=== PATIENT | female | born 1970 | race Caucasian/White ===

== ENCOUNTER → 2016-06-13 | Outpatient (CLI) | payer OTHER ==
[~2016-06-13] MED LIST: BIOT1CAP8 PO; CALC500C3 PO; CALCIUM PO; CALCPOW18; CITA20TA9 PO; CMD10 PO; ENOX60IN SQ; LEVO1TAB35 PO; LVNIS120 SQ; METF-384 PO; OXYC-57 PO; OYST500T47; PEDICHW50 PO; PRLSR20 PO; VIT K PO; WARF10TA4 PO
== END | disposition home or self-care (01) ==
LOC: C.PAPS 08:10
PROVIDERS: ATTEND Obstetrics & Gynecology
DX: Z12.4 Encounter for screening for malignant neoplasm of cervix (principal)

== ENCOUNTER 2016-09-01 05:25 | Day surgery (SDC) | payer OTHER ==
[2016-08-11 10:00] VITALS: BMI 26.0
--- NOTE | 2016-08-11 10:28 | PAT Medication Instructions ---
Service Date Aug 11, 2016. Current Home Medication List Biotin (Biotin), 2 MG PO QPM Calcium Carbonate (Tums), 500 MG PO QPM Citalopram Hydrobromide (Celexa), 20 MG PO QPM Omeprazole (Prilosec), 20 MG PO QPM Pediatric Multiple Vitamin W/ (Flintstones Chewable), 2 TAB PO HS Warfarin Sod (Jantoven), 10 MG PO QPM Medication Instructions For Your Scheduled Surgery - Hold the following medications 2 weeks prior to surgery: Biotin (Biotin), 2 MG PO QPM - Instructions per Dr. Bourne: Warfarin Sod (Jantoven), 10 MG PO QPM Lovenox bridge - Take the following medications as scheduled the night before surgery: Calcium Carbonate (Tums), 500 MG PO QPM Citalopram Hydrobromide (Celexa), 20 MG PO QPM Omeprazole (Prilosec), 20 MG PO QPM Pediatric Multiple Vitamin W/ (Flintstones Chewable), 2 TAB PO HS If you have any questions please call us at [phone] or [phone] or [phone]
[2016-08-11 11:08] LABS: BASO % 0.3 %; BASO ABS # 0.03 K/uL (0-0.2); COMPLETE YES; EOS % 2.3 %; HEMATOCRIT 43.1 % (37-47); IG% 0.1 %; LYMPH % 23.7 %; LYMPH ABS # 2.13 K/uL (1.2-3.4); MEAN CELL VOLUME 86.9 fL (80-100); MEAN CORPUSCULAR HEMOGLOBIN 28.6 pg (25-34); MEAN CORPUSCULAR HGB CONC 32.9 g/dl (32-36); MEAN PLATELET VOLUME 9.4 fL (7.4-10.4); MONO % 6.2 %; NEUT % 67.4 %; PLATELET COUNT 360 K/uL (130-400); RED BLOOD COUNT 4.96 M/uL (4.2-5.4); WHITE BLOOD COUNT 8.98 K/uL (4.8-10.8)
[2016-08-11 11:23] LABS: INR 1.8 (0.9-1.1); PARTIAL THROMBOPLASTIN RATIO 1.2; PROTHROMBIN TIME (PATIENT) 19.6 SECONDS (9.0-12.0)
[2016-08-11 11:25] LABS: CALCIUM 8.8 mg/dl (8.5-10.1); CREATININE 0.63 mg/dl (0.60-1.20); POTASSIUM 4.2 mmol/L (3.5-5.1)
--- NOTE | 2016-08-11 13:37 | HISTORY & PHYSICAL EXAMINATION ---
DATE OF ADMISSION: 08/11/2016 ADMITTING DIAGNOSES: 1. Desired permanent surgical sterilization. 2. Left ovarian cyst. 3. ParaGard IUD in place. 4. History of multiple pulmonary emboli. ADMISSION HISTORY: The patient is a 46-year-old 2, para 2, ParaGard IUD in place, who is admitted for diagnostic laparoscopy, possible left ovarian cystectomy or left salpingo-oophorectomy, bilateral tubal fulguration for sterilization, and ParaGard IUD removal. The patient was seen in May of this year for annual gynecological examination. At that time, she was complaining of irregular vaginal bleeding. The patient had a pelvic ultrasound, which showed an IUD in proper position with possible mild embedding in the myometrial wall. The patient had the IUD placed in February 2015 prior to gastric bypass surgery. The patient has always desired permanent surgical sterilization, but that was delayed prior to her bypass surgery. Since the bypass surgery, the patient has lost over 125 pounds. At the time of the pelvic ultrasound for evaluation of the IUD, an incidental enlargement of the left ovary was noted with 2 complex ovarian cysts, one measuring 5 cm in diameter and the other measuring 2 cm in diameter. The patient is asymptomatic from the cyst. The patient also has a history of thrombosis. She has had 3 separate pulmonary emboli of unknown etiology. The patient is currently anticoagulated on Coumadin and is managed by her primary care provider. Prior to her gastric bypass surgery, she was switched over to Lovenox by the hematology clinic in [place]. The IUD has also been causing irregular bleeding for the last several months and as such, the patient wishes to have the IUD removed along with a tubal ligation and evaluation of the left ovarian cyst. PAST MEDICAL HISTORY: OBSTETRICAL: Vaginal delivery x2. GYNECOLOGICAL: As above. MEDICAL: As above. SURGICAL: Cholecystectomy, gastric bypass surgery, and wisdom teeth extraction. ALLERGIES: No known drug allergies. SOCIAL HISTORY: No smoking. FAMILY HISTORY: Noncontributory. REVIEW OF SYSTEMS: As per HPI. PHYSICAL EXAMINATION: GENERAL: Shows a pleasant female in no acute distress. VITAL SIGNS: Blood pressure of 110/68, height of 5 feet 3 inches, and weight 152 pounds. HEENT EXAMINATION: Unremarkable. NECK: Supple. LUNGS: Clear. HEART: With a regular rhythm and rate. ABDOMEN: Soft and nontender. PELVIC: Shows normal external genitalia. The vaginal vault is pink and rugated. The cervical os is multiparous and closed. Bimanual examination shows an anterior mobile uterus. Adnexa showed no palpable masses and the complex cyst cannot be palpated. RECTAL: Confirmatory. EXTREMITIES: No deep calf tenderness. NEUROLOGIC: Grossly intact. IMPRESSION: A 46-year-old G2, P2, IUD in place, requesting permanent surgical sterilization and evaluation of left ovarian cyst. PLAN: The risks, benefits and alternatives to the surgery have been discussed. While the benefits will be bilateral tubal ligation with removal of the IUD as well as evaluation of left ovarian cyst, the risks are bleeding, infection, inadvertent injury to bowel or bladder or failure of the procedure itself. The patient has been seen by the anticoagulation clinic at [facility] and the plan is in place to evaluate or to reverse the patient's anticoagulation. The patient clotting profile will be checked on the morning of admission. The possibility of postponing the surgery has also been discussed with the patient. As far as the left ovarian cyst is concerned, we will evaluate this. Possible ovarian cystectomy or removal of the left adnexa will also occur at the time of the surgery. All questions answered of the patient. Permit has been signed and she wishes to proceed.
[~2016-09-01] VITALS: Ht 162.6 cm; Wt 69.5 kg
[~2016-09-01 05:25] MED LIST changes: -CALCIUM PO; -CALCPOW18; -CMD10 PO; -ENOX60IN SQ; -LEVO1TAB35 PO; -LVNIS120 SQ; -METF-384 PO; -OXYC-57 PO; -OYST500T47; -VIT K PO
[2016-09-01] MEDS ORDERED: LACTATED RINGER'S 1000ML 1,000 ML IV SCH (06:00)
[2016-09-01] MEDS ORDERED: LACTATED RINGER'S 1000ML IV SCH (06:00)
[2016-09-01] MEDS ORDERED: ENOX60IN SQ (06:21)
[2016-09-01 06:22] VITALS: BP 99/56; PULSE 63; TEMP 36.6; O2SAT 97; Ht 162.6 cm; Wt 69.5 kg
[2016-09-01 06:32] LABS: PROTHROMBIN TIME (PATIENT) 11.2 SECONDS (9.0-12.0)
[2016-09-01] MEDS ORDERED: METHYLENE BLUE 0.5% 10 ML VIAL ONE (06:54)
[2016-09-01] MEDS ORDERED: PROPOFOL IV EMULSION 10 MG/ML 20 ML VIAL IV ONE (06:55)
[2016-09-01] MEDS ORDERED: GLYCOPYRROLATE INJ 0.2 MG/ML VIAL ONE ×2 (06:55→14:57)
[2016-09-01] MEDS ORDERED: NEOSTIGMINE METHYLSULFATE 5 MG/5 ML SYR ONE (06:55)
[2016-09-01] MEDS ORDERED: LIDOCAINE HCL 2% 2 ML VIAL (20MG/ML) ONE (06:55)
[2016-09-01] MEDS ORDERED: DEXAMETHASONE SOD INJ 4 MG/ML VIAL ONE (06:55)
[2016-09-01] MEDS ORDERED: ONDANSETRON INJ 2 MG/ML 2 ML VIAL ONE (06:55)
[2016-09-01] MEDS ORDERED: ROCURONIUM BROMIDE 10 MG/ML 5 ML VIAL ONE ×2 (06:55→06:59)
[2016-09-01] MEDS ORDERED: BUPIVACAINE 0.5 % 5 MG/1 ML MPF 30ML VIAL ONE (06:55)
[2016-09-01] MEDS ORDERED: MIDAZOLAM HCL 1 MG/ML 2ML VIAL ONE (06:56)
[2016-09-01] MEDS ORDERED: FENTANYL CITRATE INJ 50 MCG/1 ML 2 ML VIAL ONE ×2 (06:56→09:09)
--- NOTE | 2016-09-01 06:59 | History & Physical Bridge Note ---
H&P Re-Evaluation Bridge Note: I have examined the patient, reviewed the History & Physical and in the interval since the performance of the History & Physical I have noted the following changes of clinical significance: PT/PTT, INR checked this AM, WNL. Plan in place for starting coagulation after surgery.
[2016-09-01] MEDS ORDERED: FENTANYL CITRATE INJ 50 MCG/1 ML 2 ML VIAL IV PRN (08:00)
[2016-09-01] MEDS ORDERED: MEPERIDINE HCL 25 MG/ML CARP IV PRN (08:00)
[2016-09-01] MEDS ORDERED: ATROPINE SULFATE 0.1 MG/ML 5ML SYR IV PRN (08:00)
[2016-09-01] MEDS ORDERED: EpHEDrine SULFATE INJ 50 MG/ML AMP IV PRN (08:00)
[2016-09-01] MEDS ORDERED: MoRPHine SULFATE 10 MG/ML CARP/VIAL IV PRN (08:00)
[2016-09-01] MEDS ORDERED: ONDANSETRON INJ 2 MG/ML 2 ML VIAL IV PRN ×2 (08:00→08:45)
[2016-09-01] MEDS ORDERED: SODIUM CHLORIDE 0.9% 1000ML 1,000 ML IV SCH (08:34)
--- NOTE | 2016-09-01 08:42 | [facility] Post Operative Brief Note ---
Immediate Operative Summary Operative Date Sep 01, 2016. Pre-Operative Diagnosis 1) Desired permanent surgical sterilization, 2) Left Complex Ovarian Cyst, 3) Removal of Intrauterine Device Post-Operative Diagnosis Same Procedure(s) Performed 1) Intrauterine Device Removal; 2) Diagnostic Laparoscopy; 3) Left Salpingo-Oophorectomy; 4) Fulgeration of Right Fallopian Tube Surgeon Dr. Santana Social Science Professor Surgeon(s) None Estimated Blood Loss 25 ml Findings Paraguard IUD removed; complex left ovarian cyst, LSO performed, fulguration of right fallopian tube, specimen removed Fluids (cc crystalloids) 1000 Specimens A. Explanted Intrauterine Device B. Left Tube and Ovary Drains None Anesthesia General Complication(s) None Disposition Recovery Room / PACU
[2016-09-01] MEDS ORDERED: OXYC-57 PO (08:43)
[2016-09-01] MEDS ORDERED: OXYCODONE/ACETAMINOPHEN 5-325 TAB PO PRN ×2 (08:45)
--- NOTE | 2016-09-01 08:46 | Discharge Instructions-SurgCtr ---
Discharge Instructions Date of Service Sep 01, 2016. Visit Reason for Visit: Desires Sterilization Discharge Discharge Diagnosis / Problem: same Discharge Goals Goal(s): Therapeutic intervention Medications Restart Stopped Medication(s): Restart anticoagulation plan given to you by the clinic. Delay starting the plan for 24 hours. Activity Recommendations Activity Limitations: as noted below Anesthesia . Post Anesthesia Instructions: If you have had General Anesthesia or IV Sedation: * Do not drive today. * Resume driving when surgeon permits. * Do not make important decisions or sign legal documents today. * Call surgeon for: 1. Temperature elevations greater than 101 degrees F. 2. Uncontrollable pain. 3. Excessive bleeding. 4. Persistent nausea and vomiting. 5. Medication intolerance (nausea, vomiting or rash). * For nausea and vomiting use only clear liquids such as: tea, soda, bouillon until nausea subsides, then gradually increase diet as tolerated. * If you have any concerns or questions, call your surgeon's office. If physician is unavailable and it is an emergency, call 911 or go to the nearest emergency room. . Instructions / Follow-Up Instructions / Follow-Up ACTIVITY RECOMMENDATIONS: * Rest the first 2-3 days. You should be back to your normal activity levels by day 3. * No heavy lifting for 2 weeks. * No intercourse, tampons or douching for 1-2 weeks. * You may shower the next day. * Do not drive anytime that you are taking narcotic pain medicines. RETURN TO SCHOOL/WORK: * May return to school or work after 2-3 days. DIET: Nausea may occur in the immediate post-operative period. If so, take clear liquids such as tea, bouillon, apple juice until all nausea has subsided, then resume usual diet. MEDICATIONS: Resume previous medications unless instructed otherwise by your surgeon. Ibuprofen 200mg 2-3 tablets every 4-6 hours as needed -- OR -- Aleve 2 tablets every 8-12 hours as needed for post-operative discomfort Medications are over the counter. Tylenol may be used if above medications are contraindicated or not preferred. Medication should be taken with food or milk. Do not take on an empty stomach. SPECIAL CARE INSTRUCTIONS: * Check temperature twice daily for one week. report any elevation over 101 degrees. * You may experience some vagina spotting and/or bleeding. This is normal for 1 -2 weeks and should not be heavier than a normal period. If it is unusual in amount, call your physician. * Post-operative discomfort may consist of a sore throat, a "bloated" feeling and pain in the shoulders. these are normal symptoms, which usually only last for 2-3 days. * Remove band-aids tomorrow and shower. There is no need to replace band-aids unless there is drainage or discomfort. FOLLOW UP VISIT: Call your doctor's office for a post-operative 2 week visit if not already scheduled. Diet Recommendations Home Diet: resume previous diet Procedures Procedures Performed: 1) Intrauterine Device Removal; 2) Diagnostic Laparoscopy; 3) Left Salpingo-Oophorectomy; 4) Fulgeration of Right Fallopian Tube Pending Studies Studies pending at discharge: yes List of pending studies: Pathology from surgery Medical Emergencies . Who to Call and When: Medical Emergencies: If at any time you feel your situation is an emergency, please call 911 immediately. . Non-Emergent Contact Non-Emergency issues call your: Shactor Helper Call Non-Emergent contact if: you have a fever, temperature is above 100.5, your pain is not controlled, you have any medication questions . . "Provider Documentation" section prepared by Moreno Santana. [place] Drug Monitoring Program Search Results: patient reviewed within database, no issues identified
--- NOTE | 2016-09-01 08:59 | OPERATIVE REPORT ---
DATE OF OPERATION: 09/01/2016 PREOPERATIVE DIAGNOSES: 1. IUD in place. 2. Desired permanent surgical sterilization. 3. Left ovarian cyst. PROCEDURES PERFORMED: 1. Removal of ParaGard IUD. 2. Diagnostic laparoscopy. 3. Laparoscopic left salpingo-oophorectomy. 4. Fulguration of right fallopian tube. SURGEON: Dr. Moreno Santana. ANESTHESIA: General. FINDINGS: Exam of the cervix showed an IUD string, which was grasped and pulled, removing the IUD in total. Diagnostic laparoscopy performed, which showed a complex left ovarian cyst. Normal appearing right ovary. Left salpingo-oophorectomy and fulguration of right fallopian tube performed. PROCEDURE IN DETAIL: The patient was taken to the operating room and after general anesthesia, was placed in dorsolithotomy position and draped and prepped in the usual fashion. Pedersen catheter was inserted into the bladder, which remained there throughout the procedure. A weighted speculum was placed in the vagina. The anterior lip of the cervix grasped with a single tooth tenaculum. The IUD string identified, grasped and pulled removing the IUD in total, which was then discarded. Uterine manipulator inserted into the cervical os and insufflated with 3 mL of air. A small subumbilical incision was made and Veress needle was introduced into the pelvic cavity, which was then insufflated with 3 liters of CO2. Veress needle was removed and an 11-mm trocar was inserted through the umbilical incision. Pelvic organs were visualized and then under direct laparoscopic guidance, a 5-mm suprapubic trocar and a left 5-mm paramedial trocar were placed. Pelvic organs were visualized with the description as above. The left adnexa was elevated and grasped with a locking grasping forceps. The left ureter was identified using the Harmonic scalpel. A left salpingo-oophorectomy was performed and the left tube and ovary were placed into the cul-de-sac. Inspection of the broad ligament, where the excision had occurred, showed hemostasis. Bipolar cautery instrument was inserted and the right fallopian tube was grasped in the middle third and in 3 contiguous [place], was fulgurated until resistance met 0. A 5-mm scope was placed through the paramedial port and an EndoCatch bag was placed through the umbilical incision. The specimen was placed through the bag and the bag was brought up through the umbilical incision. The bag was opened and the specimen was removed. Pneumoperitoneum was reestablished. All pedicles were inspected for hemostasis. Irrigation of the pedicles were performed again hemostasis was present. Fluid was aspirated. The trocars were removed and pneumoperitoneum was evacuated. The umbilical fascial incision was closed with interrupted 0 Vicryl sutures. Skin incisions were closed with 4-0 Monocryl subcuticular stitches. Sterile dressings were applied. Pedersen catheter and uterine manipulator were removed. The patient was taken out of dorsal lithotomy to recovery room in satisfactory condition. I attest to the content of the Intraoperative Record and any orders documented therein. Any exceptio ns are noted below.
--- NOTE | 2016-09-01 09:25 | Anesthesiology Progress Note ---
Anesthesia Post Op Note Date & Time Sep 01, 2016 at 09:24 Vital Signs Pain Intensity: 2 Vital Signs Past 12 Hours Date Time Temp Pulse Resp B/P Pulse Ox O2 Delivery O2 Flow Rate FiO2 09/01/16 09:15 64 16 102/55 100 Room Air 09/01/16 09:05 62 16 106/60 100 Mask 10 09/01/16 08:55 68 16 112/61 100 Mask 10 09/01/16 08:47 36.9 87 12 122/73 100 Mask 10 09/01/16 06:22 36.6 63 16 99/56 97 Room Air Notes Mental Status: alert / awake / arousable, participated in evaluation Pt Amnestic to Procedure: Yes Nausea / Vomiting: adequately controlled Pain: adequately controlled Airway Patency, RR, SpO2: stable & adequate BP & HR: stable & adequate Hydration State: stable & adequate Anesthetic Complications: no major complications apparent
[2016-09-01 10:05] VITALS: BP 110/55; PULSE 66; TEMP 37; O2SAT 92
[2016-09-01 10:35] VITALS: BP 113/62; PULSE 73; O2SAT 92
[2016-09-01 11:08] VITALS: BP 105/55; PULSE 79; O2SAT 95
[2016-09-28] MEDS ORDERED: CALCIUM PO (13:38)
[2016-09-28] MEDS ORDERED: VIT K PO (13:38)
[2016-10-31] MEDS ORDERED: CALCPOW18 (14:24)
[2016-10-31] MEDS ORDERED: OYST500T47 (14:24)
== END 2016-09-01 11:40 | disposition home or self-care (01) ==
LOC: C.ACU 05:25
PROVIDERS: ATTEND Obstetrics & Gynecology
DX: Z30.2 Encounter for sterilization (principal); D27.1 Benign neoplasm of left ovary; Z86.711 Personal history of pulmonary embolism; Z79.01 Long term (current) use of anticoagulants; Z98.84 Bariatric surgery status

== ENCOUNTER 2017-03-26 17:09 | Emergency (ER) | payer OTHER ==
[~2017-03-26] VITALS: Ht 162.6 cm; Wt 63.1 kg
[~2017-03-26 17:09] MED LIST changes: -CALC500C3 PO; +CALCPOW18
[2017-03-26 17:13] VITALS: Ht 162.6 cm; Wt 63.1 kg
[2017-03-26] MEDS ORDERED: KETOROLAC TROMETHAMINE 15 MG/ML VIAL IV STA (17:25)
[2017-03-26] MEDS ORDERED: AMOX875T PO (17:52)
[2017-03-26] MEDS ORDERED: CYAN30003 PO (17:52)
[2017-03-26 18:24] LABS: BASO % 0.3 %; BASO ABS # 0.03 K/uL (0-0.2); COMPLETE YES; HEMATOCRIT 40.9 % (37-47); IG% 0.3 %; LYMPH % 33.9 %; LYMPH ABS # 3.13 K/uL (1.2-3.4); MEAN CELL VOLUME 83.6 fL (80-100); MEAN CORPUSCULAR HGB CONC 33.5 g/dl (32-36); MEAN PLATELET VOLUME 8.8 fL (7.4-10.4); MONO % 9.1 %; NEUT % 54.4 %; PLATELET COUNT 324 K/uL (130-400); RED BLOOD COUNT 4.89 M/uL (4.2-5.4); WHITE BLOOD COUNT 9.23 K/uL (4.8-10.8)
[2017-03-26 18:47] LABS: BUN/CREATININE RATIO 20.2 (10-20); CREATININE 0.63 mg/dl (0.60-1.20)
[2017-03-26 18:50] LABS: ALB/GLOB RATIO 0.8 (0.9-2)
--- NOTE | 2017-03-26 19:05 | DIAGNOSTIC IMAGING REPORT ---
CT OF THE ABDOMEN AND PELVIS WITHOUT CONTRAST, STONE PROTOCOL CLINICAL HISTORY: Right flank pain. Hematuria. COMPARISON STUDY: CT of the abdomen and pelvis April 05, 2012. TECHNIQUE: Helical axial images of the abdomen and pelvis were obtained without IV or oral contrast according to renal stone protocol. A dose lowering technique was utilized adhering to the principles of ALARA. FINDINGS: Unenhanced images of the liver, spleen, adrenal glands and pancreas are normal. There is no biliary ductal dilatation status post cholecystectomy. There is no pancreatic ductal dilatation. There are findings consistent with Kevon-en-Y gastric bypass. There is no evidence for a bowel obstruction. Caliber of small and large bowel are normal. The appendix is normal. No renal, ureteral or bladder calculi are present. There is no hydronephrosis or hydroureter. There is no perinephric infiltration. Mild bladder wall thickening may be due to underdistention. IMPRESSION: 1. No urinary calculi or hydronephrosis. 2. Mild bladder wall thickening. This may be due to underdistention although could be correlated with urinalysis to exclude cystitis. 3. Status post gastric bypass. No bowel obstruction. Normal appendix. Electronically signed by: Kadeem De La Cruz M.D. 03/26/2017 7:03 PM Dictated Date/Time: 03/26/2017 6:57 PM
[2017-03-26 19:24] LABS: MANUAL MICROSCOPIC REQUIRED? YES; REVIEW REQ? NO; URINE APPEARANCE SLIGHTLY CLOUDY (CLEAR); URINE COLOR RED
[2017-03-26 19:25] LABS: SULFASALICYLIC ACID POS (NEG); URINE SPECIFIC GRAVITY 1.004 (1.000-1.030)
[2017-03-26 19:36] LABS: URINE BACTERIA 1+ (NEG); URINE RBC >30 /hpf (0-4); URINE WBC >30 /hpf (0-5); ZZUR CULT IF INDIC CLEAN CATCH YES
[2017-03-26] MEDS ORDERED: PHEN-876 PO (19:54)
[2017-03-26] MEDS ORDERED: NITR-5 PO (19:54)
--- NOTE | 2017-03-26 19:55 | EMERGENCY ROOM VISIT NOTE ---
History First contact with patient: 17:17 Chief Complaint: HEMATURIA Stated Complaint: BLOODY URINE History of Present Illness The patient is a 47 year old female who presents to the Emergency Room with complaints of blood in her urine. The patient reports that she has had urinary symptoms starting approximately 4 hours ago. She reports that initially, she developed dysuria, urgency and increased frequency of urination. She states this initially felt like a UTI, which she has had in the past. She then developed a large amount of blood in the urine. She reports a mild pain in the suprapubic region. She does report she had some pain in her right flank this morning, which she attributed to normal aches and pains. She rates her overall discomfort a 7/10. She denies any history of kidney stones or kidney infections. She denies any fevers/chills, nausea or vomiting. Review of Systems A complete 10 point review of systems was reviewed with the patient with pertinent positives and negatives as per history of present illness. All else were negative. Past Medical/Surgical History Medical Problems: (1) Acute bronchitis (2) Acute pulmonary embolism (3) Acute pulmonary embolism (4) Chronic anticoagulation (5) Encounter for sterilization (6) History of - pulmonary embolus (7) LA (lupus anticoagulant) disorder (8) PE (pulmonary embolism) (9) Pneumonia Surgical Problems: (1) H/O bariatric surgery (2) Hx of cholecystectomy Social History Problems: (1) IUD (intrauterine device) in place Family History Cancer Diabetes mellitus FH: gallbladder disease Heart disease Hypertension Lung disease Social History Smoking Status: Current Every Day Smoker Alcohol Use: none Drug Use: none Marital Status: Housing Status: lives with family, lives with significant other Occupation Status: unemployed Current/Historical Medications Scheduled Amoxicillin & Pot Clavulanate (Augmentin 875-125 mg), 1 TAB PO BID Citalopram Hydrobromide (Celexa), 20 MG PO QPM Cyanocobalamin (Vitamin B12), 1,500 MCG PO QPM Nitrofurantoin Monohyd Macrocr (Macrobid), 100 MG PO BID Omeprazole (Prilosec), 20 MG PO QPM Pediatric Multiple Vitamin W/ (Flintstones Chewable), 2 TAB PO HS Phenazopyridine HCl (Pyridium), 200 MG PO TID Warfarin Sod (Jantoven), 10 MG PO QPM Miscellaneous Medications Calcium Citrate Tetrahydrate ( (Calcium Citrate), Unknown Dose Physical Exam Vital Signs Date Time Temp Pulse Resp B/P (MAP) Pulse Ox O2 Delivery O2 Flow Rate FiO2 03/26/17 20:12 36.7 68 18 97/59 97 03/26/17 18:52 69 18 97/59 99 Room Air 03/26/17 17:13 36.8 82 18 132/79 98 Room Air Physical Exam VITALS: Vitals are noted on the nurse's note and reviewed by myself. Vital signs stable. GENERAL: This is a 47-year-old female, in no acute distress, nondiaphoretic, well-developed well-nourished. HEART: Regular rate and rhythm without murmurs gallops or rubs. LUNGS: Clear to auscultation bilaterally without wheezes, rales or rhonchi. ABDOMEN: Positive bowel sounds x 4. Suprapubic tenderness. Mild right CVA tenderness. NEURO: Patient was alert and oriented to person place and time. Medical Decision & Procedures ER Provider Diagnostic Interpretation: CT OF THE ABDOMEN AND PELVIS WITHOUT CONTRAST, STONE PROTOCOL CLINICAL HISTORY: Right flank pain. Hematuria. COMPARISON STUDY: CT of the abdomen and pelvis April 05, 2012. TECHNIQUE: Helical axial images of the abdomen and pelvis were obtained without IV or oral contrast according to renal stone protocol. A dose lowering technique was utilized adhering to the principles of ALARA. FINDINGS: Unenhanced images of the liver, spleen, adrenal glands and pancreas are normal. There is no biliary ductal dilatation status post cholecystectomy. There is no pancreatic ductal dilatation. There are findings consistent with Kevon-en-Y gastric bypass. There is no evidence for a bowel obstruction. Caliber of small and large bowel are normal. The appendix is normal. No renal, ureteral or bladder calculi are present. There is no hydronephrosis or hydroureter. There is no perinephric infiltration. Mild bladder wall thickening may be due to underdistention. IMPRESSION: 1. No urinary calculi or hydronephrosis. 2. Mild bladder wall thickening. This may be due to underdistention although could be correlated with urinalysis to exclude cystitis. 3. Status post gastric bypass. No bowel obstruction. Normal appendix. Laboratory Results 03/26/17 18:00 Red Blood Count 4.89, Mean Corpuscular Volume 83.6, Mean Corpuscular Hemoglobin 28.0, Mean Corpuscular Hemoglobin Concent 33.5, Mean Platelet Volume 8.8, Neutrophils (%) (Auto) 54.4, Lymphocytes (%) (Auto) 33.9, Monocytes (%) (Auto) 9.1, Eosinophils (%) (Auto) 2.0, Basophils (%) (Auto) 0.3, Neutrophils # (Auto) 5.02, Lymphocytes # (Auto) 3.13, Monocytes # (Auto) 0.84, Eosinophils # (Auto) 0.18, Basophils # (Auto) 0.03 03/26/17 18:00 Test 03/26/17 18:00 White Blood Count 9.23 K/uL (4.8-10.8) Red Blood Count 4.89 M/uL (4.2-5.4) Hemoglobin 13.7 g/dL (12.0-16.0) Hematocrit 40.9 % (37-47) Mean Corpuscular Volume 83.6 fL (80-100) Mean Corpuscular Hemoglobin 28.0 pg (25-34) Mean Corpuscular Hemoglobin Concent 33.5 g/dl (32-36) Platelet Count 324 K/uL (130-400) Mean Platelet Volume 8.8 fL (7.4-10.4) Neutrophils (%) (Auto) 54.4 % Lymphocytes (%) (Auto) 33.9 % Monocytes (%) (Auto) 9.1 % Eosinophils (%) (Auto) 2.0 % Basophils (%) (Auto) 0.3 % Neutrophils # (Auto) 5.02 K/uL (1.4-6.5) Lymphocytes # (Auto) 3.13 K/uL (1.2-3.4) Monocytes # (Auto) 0.84 K/uL (0.11-0.59) Eosinophils # (Auto) 0.18 K/uL (0-0.5) Basophils # (Auto) 0.03 K/uL (0-0.2) RDW Standard Deviation 42.5 fL (36.4-46.3) RDW Coefficient of Variation 13.9 % (11.5-14.5) Immature Granulocyte % (Auto) 0.3 % Immature Granulocyte # (Auto) 0.03 K/uL (0.00-0.02) Urine Color RED Urine Appearance SLIGHTLY CLOUDY (CLEAR) Urine pH (4.5-7.5) Urine Specific [place] 1.004 (1.000-1.030) Urine Protein (NEG) Urine Glucose (UA) (NEG) Urine Ketones (NEG) Urine Occult Blood (NEG) Urine Nitrite (NEG) Urine Bilirubin (NEG) Urine Urobilinogen (NEG) Urine Leukocyte Esterase (NEG) Urine RBC >30 /hpf (0-4) Urine WBC >30 /hpf (0-5) Urine Epithelial Cells 10-20 /lpf (0-5) Urine Bacteria 1+ (NEG) Urine Test NEG (NEG) Anion Gap 6.0 mmol/L (3-11) Est Creatinine Clear Calc Drug Dose 96.4 ml/min Estimated GFR () 124.7 Estimated GFR (Non- 107.6 BUN/Creatinine Ratio 20.2 (10-20) Calcium Level 9.0 mg/dl (8.5-10.1) Total Bilirubin 0.5 mg/dl (0.2-1) Aspartate Amino Transf (AST/SGOT) 30 U/L (15-37) Alanine Aminotransferase (ALT/SGPT) 79 U/L (12-78) Alkaline Phosphatase 89 U/L (45-117) Total Protein 7.9 gm/dl (6.4-8.2) Albumin 3.5 gm/dl (3.4-5.0) Globulin 4.4 gm/dl (2.5-4.0) Albumin/Globulin Ratio 0.8 (0.9-2) Lipase 250 U/L (73-393) Medications Administered Medications (Trade) Dose Ordered Sig/Julio Cesar Route Start Time Stop Time Status Last Admin Dose Admin Nitrofurantoin (Macrobid Homepack 100MG) 1 homepack UD ONCE PO 03/26/17 20:00 03/26/17 20:01 DC 03/26/17 20:02 1 HOMEPACK Phenazopyridine HCl (Phenazopyridine HCl 200MG Home Pack) 1 homepack UD ONCE PO 03/26/17 20:00 03/26/17 20:01 DC 03/26/17 20:03 1 HOMEPACK Medical Decision Differential diagnosis includes UTI, pyelonephritis, kidney stone, among others. The patient is a 47-year-old female who presents today complaining of urinary symptoms. Patient does have blood in her urine, which she states is unusual for her UTIs. She also had some right flank pain this morning. For this reason , I did choose to perform a workup to rule out kidney stone. CT scan showed no evidence of obstructing stone or hydronephrosis. Labs were unremarkable. There is no leukocytosis. CT did show some evidence of bladder wall thickening. Urinalysis showed greater than 30 red blood cells, greater than 30 white blood cells and 1+ bacteria. Given these findings I do feel this represented a cystitis. Patient will be placed on Macrobid and given Pyridium for symptoms. She will follow-up with her primary care provider as needed. Based on the patient's presentation and work up, I feel the patient is stable for outpatient treatment. The patient was educated to return to the emergency department for any worsening of their current condition or new/concerning symptoms. She will follow up with her PCP. Medication Reconcilliation Current Medication List: was personally reviewed by me Blood Pressure Screening Patient's blood pressure: Low blood pressure (patient states this is her baseline blood pressure.) Impression Primary Impression: Urinary tract infection Departure Information Dispostion Home / Self-Care Condition GOOD Prescriptions Phenazopyridine HCl (Pyridium) 200 Mg Tab 200 MG PO TID for 2 Days, #6 TAB Prov: Latha Wayne PA-C 03/26/17 Nitrofurantoin Monohyd Macrocr (Macrobid) 100 Mg Cap 100 MG PO BID for 6 Days, #12 CAP Prov: Latha Wayne PA-C 03/26/17 Referrals Benny Salgado M.D. (PCP) Forms WORK / SCHOOL INSTRUCTIONS, HOME CARE DOCUMENTATION FORM, IMPORTANT VISIT INFORMATION Patient Instructions My [facility] Additional Instructions You have been treated in the Emergency Department for a Urinary Tract Infection (UTI). You have been prescribed Macrobid to be taken twice daily for a total 1 week. This is an antibiotic. All antibiotics have the potential to cause diarrhea. Stop this medication and contact a medical provider if you were to develop any significant adverse side effects including: wheezing, shortness of breath, passing out, vomiting, or a diffuse rash. Always take antibiotics as directed and COMPLETE the ENTIRE course regardless of the improvement of your symptoms. You have been prescribed Pyridium to be taken as prescribed. This medicine will help with the urinary symptoms that you have been experiencing. Be aware that Pyridium may turn your urine a red-orange or brown color. This effect is harmless. Drink plenty of water and stay well hydrated. As with any trip to the Emergency Department, you should follow-up with your Primary Care Provider from today's visit. Return to the emergency department if your symptoms persist despite treatment plan outlined above or if the following symptoms occur: increased fevers, chills , low back pain, nausea/vomiting, or blood in your urine. Problem Qualifiers Primary Impression: Urinary tract infection Urinary tract infection type: acute cystitis Hematuria presence: with hematuria Qualified Codes: N30.01 - Acute cystitis with hematuria
[2017-03-26] MEDS ORDERED: MACROBID 100MG HOME PACK 1 EA VIAL PO ONE (20:00)
[2017-03-26] MEDS ORDERED: PHENAZOPYRIDINE HOME PACK 200 MG VIAL PO ONE (20:00)
[2017-03-26 20:12] VITALS: BP 97/59; PULSE 68; TEMP 36.7; O2SAT 97
== END 2017-03-26 20:16 | disposition home or self-care (01) ==
LOC: C.EDB 17:09 → C.EDC 20:16
DX: N30.01 Acute cystitis with hematuria (principal); D68.312 Antiphospholipid antibody with hemorrhagic disorder; I26.99 Other pulmonary embolism without acute cor pulmonale; Z83.3 Family history of diabetes mellitus; Z82.49 Family history of ischemic heart disease and other diseases of the circulatory system; F17.200 Nicotine dependence, unspecified, uncomplicated; Z79.01 Long term (current) use of anticoagulants

== ENCOUNTER 2017-04-09 11:38 | Emergency (ER) | payer OTHER ==
[~2017-04-09] VITALS: Ht 162.6 cm; Wt 62.7 kg
[~2017-04-09 11:38] MED LIST changes: +AMOX875T PO; -BIOT1CAP8 PO; +CYAN30003 PO
[2017-04-09 11:42] VITALS: TEMP 36.9; Ht 162.6 cm; Wt 62.7 kg
[2017-04-09] MEDS ORDERED: SODIUM CHLORIDE 0.9% 1000ML 1,000 ML IV STA (12:28)
[2017-04-09] MEDS ORDERED: ACETAMINOPHEN 500 MG TAB PO STA (12:28)
--- NOTE | 2017-04-09 12:33 | EMERGENCY ROOM VISIT NOTE ---
History Report prepared by Adeline: Manuel Sanon Under the Supervision of: Dr. Giancarlo Nix M.D. First contact with patient: 12:26 Chief Complaint: FLANK PAIN Stated Complaint: KIDNEY PAIN History of Present Illness The patient is a 47 year old female who presents to the Emergency Room with complaints of waxing and waning bilateral flank pain that began 3 days ago. The patient was treated in our ER for a UTI infection two weeks ago. She received a CT scan and blood work which were negative. She was discharged on Macrobid. Her symptoms are similar to her past symptoms, however, the flank pain is new. She notes that yesterday she had an episode of hematuria that she describes as bright red blood with a clot. She is also having burning with urination. She denies any fevers, chills, nausea, vomiting, diarrhea, or abnormal vaginal bleeding. She has a past medical history of a gastric bypass surgery in July 2015. She has been taking Tylenol to help her pain, with her last dose being this morning at 0630. Source of History: patient Onset: 3 days ago Position: other (Bilateral flank) Symptom Intensity: moderate Quality: sharp Timing: waxes/wanes Associated Symptoms: + urinary symptoms (hematuria and burning), No fevers, No chills, No nausea, No vomiting, No diarrhea Review of Systems See HPI for pertinent positives and negatives. A total of ten systems were reviewed and were otherwise negative. Past Medical & Surgical Medical Problems: (1) Acute bronchitis (2) Acute pulmonary embolism (3) Acute pulmonary embolism (4) Chronic anticoagulation (5) Encounter for sterilization (6) History of - pulmonary embolus (7) LA (lupus anticoagulant) disorder (8) PE (pulmonary embolism) (9) Pneumonia Surgical Problems: (1) H/O bariatric surgery (2) Hx of cholecystectomy Social History Problems: (1) IUD (intrauterine device) in place Family History Cancer Diabetes mellitus FH: gallbladder disease Heart disease Hypertension Lung disease Social History Smoking Status: Current Some Day Smoker Alcohol Use: none Drug Use: none Marital Status: Housing Status: lives with family, lives with significant other Occupation Status: unemployed Current/Historical Medications Scheduled Citalopram Hydrobromide (Celexa), 20 MG PO QPM Cyanocobalamin (Vitamin B12), 1,500 MCG PO QPM Omeprazole (Prilosec), 20 MG PO QPM Pediatric Multiple Vitamin W/ (Flintstones Chewable), 2 TAB PO HS Sulfa/Trimethoprim (Bactrim Ds 800MG/160MG), 1 TAB PO BID Warfarin Sod (Jantoven), 10 MG PO QPM Miscellaneous Medications Calcium Citrate Tetrahydrate ( (Calcium Citrate), Unknown Dose Allergies Coded Allergies: No Known Allergies (Verified , 04/09/17) Physical Exam Vital Signs Date Time Temp Pulse Resp B/P (MAP) Pulse Ox O2 Delivery O2 Flow Rate FiO2 04/09/17 17:10 65 18 116/68 98 04/09/17 16:05 68 12 105/64 98 Room Air 04/09/17 13:45 59 16 110/68 96 Room Air 04/09/17 11:42 36.9 75 18 115/71 97 Room Air Physical Exam GENERAL: Awake, alert, uncomfortable-appearing, in no distress HENT: Normocephalic, atraumatic. Oropharynx shows dry mucous membranes. EYES: Normal conjunctiva. Sclera non-icteric. NECK: Supple. No nuchal rigidity. FROM. No JVD. RESPIRATORY: Clear to auscultation. CARDIAC: Regular rate, normal rhythm. Extremities warm and well perfused. Pulses equal. ABDOMEN: Soft, non-distended. No tenderness to palpation. No rebound or guarding. No masses. No peritoneal signs. RECTAL: Deferred. MUSCULOSKELETAL: Chest examination reveals no tenderness. The back is symmetrical on inspection without obvious abnormality. There is mild left- lumbar CVA tenderness to palpation. No joint edema. LOWER EXTREMITIES: Calves are equal size bilaterally and non-tender. No edema. No discoloration. NEURO: Normal sensorium. No sensory or motor deficits noted. SKIN: No rash or jaundice noted. Medical Decision & Procedures ER Provider Diagnostic Interpretation: Radiology results as stated below per my review and radiologist interpretation: (RENAL)RETROPERITON COMP HISTORY: 47 years-old Female flank pain, hematuria acute bilateral flank pain with hematuria. COMPARISON: CT 03/26/2017 TECHNIQUE: Multiple real-time sonographic images of the kidneys and urinary bladder were obtained assessing grayscale appearance and color flow FINDINGS: Right kidney measures 11.2 x 4.1 x 5.3 cm and is unremarkable without hydronephrosis, renal calculi or focal mass lesion. Cortical medullary differentiation is preserved. The left kidney measures 11.0 x 5.1 x 5.6 cm and demonstrates no renal calculi or hydronephrosis. Cyst of the lower pole is seen measuring up to 0.9 cm. Mild caliectasis of the inferior pole left kidney is likely physiologic. Urinary bladder is only partially distended. Ureteral jets are not well seen. IMPRESSION: 1. No renal calculi or hydronephrosis. 2. Cyst of the lower pole left kidney is noted, 0.9 cm. 3. Partially collapsed urinary bladder. The above report was generated using voice recognition software. It may contain grammatical, syntax or spelling errors. Electronically signed by: Johnie Muniz M.D. 04/09/2017 1:32 PM Dictated Date/Time: 04/09/2017 1:29 PM Laboratory Results 04/09/17 12:48 Red Blood Count 4.56, Mean Corpuscular Volume 87.3, Mean Corpuscular Hemoglobin 27.6, Mean Corpuscular Hemoglobin Concent 31.7, Mean Platelet Volume 9.1, Neutrophils (%) (Auto) 80.9, Lymphocytes (%) (Auto) 12.8, Monocytes (%) (Auto) 5.4, Eosinophils (%) (Auto) 0.5, Basophils (%) (Auto) 0.2, Neutrophils # (Auto) 10.82, Lymphocytes # (Auto) 1.72, Monocytes # (Auto) 0.72, Eosinophils # (Auto) 0.07, Basophils # (Auto) 0.03 04/09/17 12:48 Test 04/09/17 12:48 04/09/17 12:55 White Blood Count 13.39 K/uL (4.8-10.8) Red Blood Count 4.56 M/uL (4.2-5.4) Hemoglobin 12.6 g/dL (12.0-16.0) Hematocrit 39.8 % (37-47) Mean Corpuscular Volume 87.3 fL (80-100) Mean Corpuscular Hemoglobin 27.6 pg (25-34) Mean Corpuscular Hemoglobin Concent 31.7 g/dl (32-36) Platelet Count 374 K/uL (130-400) Mean Platelet Volume 9.1 fL (7.4-10.4) Neutrophils (%) (Auto) 80.9 % Lymphocytes (%) (Auto) 12.8 % Monocytes (%) (Auto) 5.4 % Eosinophils (%) (Auto) 0.5 % Basophils (%) (Auto) 0.2 % Neutrophils # (Auto) 10.82 K/uL (1.4-6.5) Lymphocytes # (Auto) 1.72 K/uL (1.2-3.4) Monocytes # (Auto) 0.72 K/uL (0.11-0.59) Eosinophils # (Auto) 0.07 K/uL (0-0.5) Basophils # (Auto) 0.03 K/uL (0-0.2) RDW Standard Deviation 46.8 fL (36.4-46.3) RDW Coefficient of Variation 14.6 % (11.5-14.5) Immature Granulocyte % (Auto) 0.2 % Immature Granulocyte # (Auto) 0.03 K/uL (0.00-0.02) Prothrombin Time 19.1 SECONDS (9.0-12.0) Prothromb Time International Ratio 1.7 (0.9-1.1) Anion Gap 8.0 mmol/L (3-11) Est Creatinine Clear Calc Drug Dose 104.7 ml/min Estimated GFR () 128.1 Estimated GFR (Non- 110.5 BUN/Creatinine Ratio 9.4 (10-20) Calcium Level 9.0 mg/dl (8.5-10.1) Total Bilirubin 0.6 mg/dl (0.2-1) Direct Bilirubin 0.1 mg/dl (0-0.2) Aspartate Amino Transf (AST/SGOT) 21 U/L (15-37) Alanine Aminotransferase (ALT/SGPT) 58 U/L (12-78) Alkaline Phosphatase 95 U/L (45-117) Total Protein 7.2 gm/dl (6.4-8.2) Albumin 3.4 gm/dl (3.4-5.0) Lipase 154 U/L (73-393) Urine Color DK YELLOW Urine Appearance CLOUDY (CLEAR) Urine pH 5.5 (4.5-7.5) Urine Specific [place] 1.013 (1.000-1.030) Urine Protein 1+ (NEG) Urine Glucose (UA) NEG (NEG) Urine Ketones NEG (NEG) Urine Occult Blood 3+ (NEG) Urine Nitrite POS (NEG) Urine Bilirubin NEG (NEG) Urine Urobilinogen NEG (NEG) Urine Leukocyte Esterase LARGE (NEG) Urine WBC (Auto) >30 /hpf (0-5) Urine RBC (Auto) >30 /hpf (0-4) Urine Hyaline Casts (Auto) 1-5 /lpf (0-5) Urine Epithelial Cells (Auto) >30 /lpf (0-5) Urine Bacteria (Auto) NEG (NEG) Laboratory results reviewed by me Medications Administered Medications (Trade) Dose Ordered Sig/Julio Cesar Route Start Time Stop Time Status Last Admin Dose Admin Sodium Chloride 1,000 ml @ 999 mls/hr Q1H1M STAT IV 04/09/17 12:28 04/09/17 13:28 DC 04/09/17 12:50 999 MLS/HR Acetaminophen (Tylenol Tab) 1,000 mg NOW STAT PO 04/09/17 12:28 04/09/17 12:35 DC 04/09/17 12:50 1,000 MG Ceftriaxone Sodium 2000 mg/ Dextrose 70 ml @ 100 mls/hr ONE STAT IV 04/09/17 15:37 04/09/17 16:18 DC 04/09/17 16:08 100 MLS/HR ED Course 1226: The patient was evaluated in room B5. A complete history and physical exam was performed. 1228: Ordered Tylenol Tab 1000 mg PO, Sodium Chloride 1000 ml @ 999 mls/hr IV 1537: Ordered Ceftriaxone Sodium 2000 mg/ Dextrose 70 ml @ 100 mls/hr IV 1700: I reevaluated the patient. Discussed results and discharge instructions: She verbalized understanding and agreement. The patient is ready for discharge. Medical Decision I reviewed the patient's past medical history, medications, and the nursing notes as described above. Differential diagnosis includes but is not limited to: pyelonephritis, UTI, partial obstruction, biliary etiology, endometrial/bladder cancer, and STD/STI. 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 The patient appears uncomfortable but in no acute distress. She is afebrile with stable vital signs. Exam she has mild tenderness in the suprapubic area as well as the left lumbar and flank. UA grossly positive with positive WBC and LE , positive nitrite in the setting of prior CT abd/pel showing bladder wall thickening c/w UTI. Patient denies vaginal sx including lesions, discharge, itching or odor. Given the patient's flank pain and WBC elevated at 13 symptoms are consistent with a pyelonephritis. Renal US unremarkable. Case was discussed with the pharmacist to recommends ceftriaxone and Bactrim outpatient treatment given the patient's history of Kevon-en-Y gastric bypass in this regimen may provide more efficient absorption. Otherwise patient was counseled on her INR which is 1.7 and she'll follow up closely with her coagulation clinic given the effects of Bactrim on Coumadin. Findings and plan for follow- up reviewed with patient. Patient agreeable and d/c'd per discharge instructions. Medication Reconcilliation Current Medication List: was personally reviewed by me Blood Pressure Screening Patient's blood pressure: Normal blood pressure Blood pressure disposition: Did not require urgent referral Impression Primary Impression: Pyelonephritis Scribe Attestation The scribe's documentation has been prepared under my direction and personally reviewed by me in its entirety. I confirm that the note above accurately reflects all work, treatment, procedures, and medical decision making performed by me. Departure Information Dispostion Home / Self-Care Prescriptions Sulfa/Trimethoprim (Bactrim Ds 800MG/160MG) Tab 1 TAB PO BID for 14 Days, #28 TAB Prov: Giancarlo Nix M.D. 04/09/17 Referrals Benny Salgado M.D. (PCP) Forms HOME CARE DOCUMENTATION FORM, IMPORTANT VISIT INFORMATION Patient Instructions My [facility], Pyelonephritis Dc Additional Instructions Please follow up with your primary care physician and Coumadin clinic in the next 2 days for re-evaluation and repeat INR. You were found to have a urinary tract infection that likely involves your kidneys. Otherwise, your exam, kidney ultrasound and lab results did not show signs of an emergent condition at this time. Bactrim as directed for 14 days. Return to the emergency department for worsening symptoms as described in the accompanying instructions.
[2017-04-09 13:24] LABS: URINE APPEARANCE CLOUDY (CLEAR); URINE BILIRUBIN NEG (NEG); URINE COLOR DK YELLOW; URINE EPITHELIAL CELL AUTO >30 /lpf (0-5); URINE NITRITE POS (NEG); URINE PH 5.5 (4.5-7.5); URINE SPECIFIC GRAVITY 1.013 (1.000-1.030); UROBILINOGEN NEG (NEG); ZZUR CULT IF INDIC CLEAN CATCH YES
[2017-04-09 13:25] LABS: MANUAL MICROSCOPIC REQUIRED? NO; REVIEW REQ? NO
[2017-04-09 13:28] LABS: BASO % 0.2 %; BASO ABS # 0.03 K/uL (0-0.2); COMPLETE YES; EOS % 0.5 %; HEMATOCRIT 39.8 % (37-47); IG% 0.2 %; LYMPH % 12.8 %; LYMPH ABS # 1.72 K/uL (1.2-3.4); MEAN CELL VOLUME 87.3 fL (80-100); MEAN CORPUSCULAR HEMOGLOBIN 27.6 pg (25-34); MEAN CORPUSCULAR HGB CONC 31.7 g/dl (32-36); MEAN PLATELET VOLUME 9.1 fL (7.4-10.4); MONO % 5.4 %; NEUT % 80.9 %; PLATELET COUNT 374 K/uL (130-400); RED BLOOD COUNT 4.56 M/uL (4.2-5.4); WHITE BLOOD COUNT 13.39 K/uL (4.8-10.8)
--- NOTE | 2017-04-09 13:34 | DIAGNOSTIC IMAGING REPORT ---
(RENAL)RETROPERITON COMP HISTORY: 47 years-old Female flank pain, hematuria acute bilateral flank pain with hematuria. COMPARISON: CT 03/26/2017 TECHNIQUE: Multiple real-time sonographic images of the kidneys and urinary bladder were obtained assessing grayscale appearance and color flow FINDINGS: Right kidney measures 11.2 x 4.1 x 5.3 cm and is unremarkable without hydronephrosis, renal calculi or focal mass lesion. Cortical medullary differentiation is preserved. The left kidney measures 11.0 x 5.1 x 5.6 cm and demonstrates no renal calculi or hydronephrosis. Cyst of the lower pole is seen measuring up to 0.9 cm. Mild caliectasis of the inferior pole left kidney is likely physiologic. Urinary bladder is only partially distended. Ureteral jets are not well seen. IMPRESSION: 1. No renal calculi or hydronephrosis. 2. Cyst of the lower pole left kidney is noted, 0.9 cm. 3. Partially collapsed urinary bladder. The above report was generated using voice recognition software. It may contain grammatical, syntax or spelling errors. Electronically signed by: Johnie Muniz M.D. 04/09/2017 1:32 PM Dictated Date/Time: 04/09/2017 1:29 PM
[2017-04-09 13:36] LABS: BUN/CREATININE RATIO 9.4 (10-20); CREATININE 0.58 mg/dl (0.60-1.20)
[2017-04-09] MEDS ORDERED: CEFTRIAXONE SOD INJ 2,000 MG in DEXTROSE 5% 50ML 50 ML IV STA (15:37)
[2017-04-09 16:03] LABS: INR 1.7 (0.9-1.1); PROTHROMBIN TIME (PATIENT) 19.1 SECONDS (9.0-12.0)
[2017-04-09] MEDS ORDERED: SULF800T23 PO (16:57)
[2017-04-09 17:10] VITALS: BP 116/68; PULSE 65; O2SAT 98
== END 2017-04-09 17:11 | disposition home or self-care (01) ==
LOC: C.EDB 11:39
DX: N12 Tubulo-interstitial nephritis, not specified as acute or chronic (principal); D68.62 Lupus anticoagulant syndrome; F17.200 Nicotine dependence, unspecified, uncomplicated; Z79.01 Long term (current) use of anticoagulants; Z98.84 Bariatric surgery status; Z86.711 Personal history of pulmonary embolism; Z90.49 Acquired absence of other specified parts of digestive tract; Z97.5 Presence of (intrauterine) contraceptive device; Z83.3 Family history of diabetes mellitus; Z83.79 Family history of other diseases of the digestive system; Z82.49 Family history of ischemic heart disease and other diseases of the circulatory system

== ENCOUNTER → 2017-04-25 | Outpatient (CLI) | payer OTHER ==
[~2017-04-25] MED LIST changes: -AMOX875T PO
--- NOTE | 2017-04-25 13:45 | MAMMOGRAPHY REPORT ---
BILATERAL DIGITAL SCREENING MAMMOGRAM TOMOSYNTHESIS WITH CAD: 04/25/2017 CLINICAL HISTORY: Routine screening. The patient reports that she has lost 140 pounds in the last 19 months. TECHNIQUE: Breast tomosynthesis in addition to standard 2D mammography was performed. Current study was also evaluated with a Computer Aided Detection (CAD) system. COMPARISON: Comparison is made to exams dated: 04/24/2016 mammogram and 04/21/2015 mammogram - [facility] [address] BREAST COMPOSITION: There are scattered areas of fibroglandular density in both breasts. FINDINGS: No suspicious masses, calcifications, or areas of architectural distortion are noted in ei ther breast. The breasts are smaller compared to prior exams and there is mildly diffusely increased density of bilateral breasts, consistent with reported history of significant weight loss. IMPRESSION: ACR BI-RADS CATEGORY 2: BENIGN There is no mammographic evidence of malignancy. A 1 year screening mammogram is recommended. The pa tient will receive written notification of the results. Approximately 10% of breast cancers are not detected with mammography. A negative mammographic report should not delay biopsy if a clinically suggestive mass is present. Shira Holbrook M.D. /:04/25/2017 12:10:50 Belting Inspector: Dara CAGE(Damian)(M), [facility] [address] letter sent: Normal 1/2 BI-RADS Code: ACR BI-RADS Category 2: Benign
== END | disposition home or self-care (01) ==
LOC: C.MAMM 11:17
PROVIDERS: ATTEND Internal Medicine
DX: Z12.31 Encounter for screening mammogram for malignant neoplasm of breast (principal)